=== PATIENT | female | born 1995 | race Caucasian/White ===

== ENCOUNTER 2023-10-20 19:20 | Emergency (ER) | payer OTHER ==
[~2023-10-20] VITALS: Ht 170.2 cm; Wt 62.6 kg
[2023-10-20 19:20] VITALS: BP 123/79; TEMP 98.2; O2SAT 98
[2023-10-20] MEDS ORDERED: IBUPROFEN 600 MG TABLET ONE (21:00)
[2023-10-20] MEDS ORDERED: ACETAMINOPHEN 325 MG TABLET ONE (21:00)
[2023-10-20] MEDS: IBUPROFEN 600 MG TABLET PO ONE (21:01)
[2023-10-20] MEDS: ACETAMINOPHEN 325 MG TABLET PO ONE (21:01)
[2023-10-20] MEDS ORDERED: ACET325C7 PO (21:43)
== END 2023-10-20 22:07 | disposition home or self-care (01) ==
LOC: ER 19:28
DX: M79.641 Pain in right hand (principal); Z79.899 Other long term (current) drug therapy
CPT/HCPCS: 73130-TC